=== PATIENT | female | born 2005 | race Caucasian/White ===

== ENCOUNTER 2025-03-17 07:59 | Observation (INO) | payer OTHER, SELFPAY ==
[2025-03-17] VITALS (13 sets, daily range): BP systolic 101–115; BP diastolic 53–68; PULSE 57–107; RESP 14–18; TEMP 36.8–39.4; O2SAT 94–100; BMI 29.7
--- NOTE | 2025-03-17 07:56 | PCM.HP.STD ---
HPI - General General Date of Admission: 03/17/25 Chief Complaint: Acute appendicitis HPI Narrative QUITA CHURCHILL, is a 20 F who presents to [facility] in direct transfer from [facility]. She presents with her parents. She states that she began with symptoms of rather diffuse abdominal discomfort approximately 9 PM yesterday. These symptoms became progressive and more focused to the right lower quadrant so she ultimately presented to outside hospital ER at 2:00 in the morning. She describes some associated nausea and vomiting but otherwise normal bowel function. She also reports fevers with a Tmax of 103 Fahrenheit. Per outside hospital emergency medicine physician patient had CT imaging showing acute uncomplicated appendicitis with multiple appendicoliths. She was reportedly administered Rocephin and Flagyl empirically. Patient has no notable past medical history. She has no history of prior abdominal surgery. [facility] Medical History no medical history Home Medications ?Medication ?Instructions ?Recorded ?Last Taken ?Type Probiotic 1 tab PO DAILY stomach 03/17/25 Unknown History ascorbic acid (vitamin C) 500 mg 500 mg PO DAILY supplement 03/17/25 Unknown History chewable tablet (Acerola C) multivitamin (Daily Multi-Vitamin 1 tab PO DAILY supplement 03/17/25 Unknown History tablet) Allergy/AdvReac Type Severity Reaction Status Date / Time No Known Allergies Allergy Verified 03/17/25 06:48 Surgical History (Updated 03/17/25 @ 07:21 by Bushra Johnson) History of adenoidectomy [place] teeth extracted Social History Smoking Status: Never smoker Vital Signs Vital Signs Vital Signs: 03/17/25 06:46 03/17/25 06:56 Temperature 103 F H Temperature Source Oral Pulse Rate 107 H Respiratory Rate 17 Respiratory Effort Normal Non-Labored Respiratory Depth Normal Respiratory Pattern Normal Blood Pressure 105/68 Blood Pressure Mean 80 Blood Pressure Source Monitor Blood Pressure Position Semi-Fowlers Blood Pressure Location Left Arm Pulse Ox 100 Oxygen Delivery Method Room Air Room Air Weight Weight: 183 lb 13.848 oz Body Mass Index (BMI) 29.7 Physical Exam Const alert and oriented x3 Constitutional Narrative: Mild distress from abdominal discomfort Resp normal respiratory effort GI GI Narrative: Nondistended, soft, markedly tender to palpation over McBurney's point. Negative obturator sign. Assessment & Plan Assessment/Plan (1) Acute appendicitis: PLAN: Patient 20-year-old female who presents with just under 12 hours of signs and symptoms consistent with acute appendicitis. This was confirmed on CT imaging from outside facility but reviewed in our PACS system by me. Patient has a number of appendicoliths and a markedly inflamed?appearing appendix in the right lower quadrant. I discussed need to proceed with surgical appendectomy and discussed the details of a laparoscopic procedure. I shared the increased risk of perforation and complication given the presence of the appendicolith and the need to proceed in an expeditious fashion. Patient and her family are in agreement. Formal consent to be obtained. Patient was already administered empiric antibiotics. Case was posted and we are awaiting an operative time midmorning. Will evaluate postoperatively to determine if patient requires additional inpatient stay. Randell Cruz MD General Surgery Endocrine Surgery Pager: [facility] [address] [place] [address] [place] [address] Office: [phone] Charges/Coding Visit Charges Inpatient E&M: 90623 Init Hosp L2
[2025-03-17] MEDS: 0.9% Normal Saline (1000mL) 1,000 ML 100 ML IV (08:43)
[2025-03-17] MEDS: HYDROmorphone 0.5 MG/0.5 ML SYRINGE IV (08:45)
[2025-03-17] MEDS: Piperacil/Tazobactam 3.375 GM in 0.9% Normal Saline (50mL MB+) 50 ML IV (08:46)
[2025-03-17] MEDS: 0.9% Saline Lock 10 ML Syringe IV (08:50)
--- NOTE | 2025-03-17 09:37 | NURSING ---
pt to surgery
[2025-03-17] MEDS: Lactated Ringers 1,000 ML 15 ML IV (10:14)
--- NOTE | 2025-03-17 10:16 | PRE.ANES_ITS ---
ASA Classification* ASA Classification ASA Classification: 2 and E Assessment & Plan Anesthesia* Anesthesia Assessment Anesthesia Assessment: Discussed sedation and/or anesthesia options, risks, benefits, and alternatives with patient/parents/legal guardian/POA. Questions invited. The patient/parents/legal guardian/POA seems to understand and agrees to proceed with anesthesia plan. Reviewed the physical assessment, medical history, allergy history and patient home medications list prior to surgery/procedure/anesthetic and documented any changes. Performed airway and anesthesia risk assessments. 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 When Was Last Pacemaker Check QUESTION #4 FULL TEXT: You/Your Family Experience fever (hyperthermia) with Anesthesia Last Oral Intake Last Oral intake: Last Oral Intake NPO since 00:00 03/17/25 08:55 Meds taken in AM with sips of No 03/17/25 08:55 water? Meds patient instructed to take am of surgery PONV PONV - marking machine operator: PONV - marking machine operator Female HX of Motion Sickness HX of N/V After Surgery Non-Smoker Duration of Surgery greater than 60 minutes Number of Risk Factors PONV Score Height & Weight Height & Weight: Anesthesia: Height & Weight Height 5 ft 6 in 03/17/25 08:55 Weight: 83.4 kg 03/17/25 08:55 Body Mass Index (BMI) 29.7 03/17/25 08:55 Respiratory Assessment Respiratory Assessment - marking machine operator: Respiratory Tract Infection Hx - marking machine operator Hx Respiratory Tract Infection No 03/17/25 08:55 STOP Sleep Apnea STOP Sleep Apnea - marking machine operator: STOP Sleep Apnea - marking machine operator Hx Hypertension No 03/17/25 06:53 Hx Sleep Apnea No 03/17/25 06:53 CPAP BIPAP Do you snore loudly (louder No 03/17/25 06:53 than talking or can be heard Do you often feel tired/ No 03/17/25 06:53 fatigued/ sleepy during daytime? Has anyone observed you stop No 03/17/25 06:53 breathing during sleep? STOP Results Negative 03/17/25 06:53 QUESTION #5 FULL TEXT : Do you snore loudly (louder than talking or can be heard through closed doors)? Tobacco Use History Tobacco Use History - marking machine operator: Tobacco Use History - marking machine operator Tobacco Use Smoking Status Never smoker 03/17/25 06:53 Hx Tobacco Use No 03/17/25 06:53 Years Smoking Packs Smoked per Day Smoking Cessation Date was within the last 15 years Hx Smoking Cessation Date Hx Smoking Cessation Counseling Hematologic Medial History Hematologic Hx - marking machine operator: Hematologic Medical Hx - food sampler Hx of Blood Transfusion No 03/17/25 06:53 Hx of Transfusion in last 3 No 03/17/25 06:53 Months Date of Last Transfusion (if within last 3 months) Ever experience any problems No 03/17/25 06:53 with transfusion(s)? Specify any problems Hx of Preganancy in last 3 No 03/17/25 06:53 Months Nurse Filling Out Transfusion DREDICK 03/17/25 06:53 & Questions: Date: 03/17/25 03/17/25 06:53 Time: 06:53 03/17/25 06:53 Patient unable to answer at this time (ie. confused, unrespo /Reproduction History /Reproductive History - marking machine operator: /Reproductive Hx- marking machine operator Hx Now No 03/17/25 08:55 Gestational Age (in weeks): EDC: Hx Hx Para Hx Section SAB No 03/17/25 08:55 Active Medications Active Medications: Current Medications Generic Name Dose Route Start Last Admin Trade Name Freq PRN Reason Stop Dose Admin Acetaminophen 650 mg 03/17/25 08:04 Acetaminophen 325 Mg Tablet PO Q6H PRN PRN Pain 1-10 Or Fever >100.7 Docusate Sodium 100 mg 03/17/25 08:04 Docusate Sodium 100 Mg Capsule PO BID PRN PRN Constipation Hydromorphone HCl 0.5 - 1 mg 03/17/25 08:04 Hydromorphone 1 Mg/Ml Syringe IV Q3H PRN PRN Pain Score 6-10 Hydromorphone HCl 0.5 - 1 mg 03/17/25 08:10 03/17/25 08:45 Hydromorphone 0.5 Mg/0.5 Ml Syringe IV 0.5 mg Q3H PRN PRN Administration Pain Score 6-10 Sodium Chloride 250 mls @ 15 mls/hr 03/17/25 06:48 IV .[id number] PRN Saline Flush Sodium Chloride 250 mls @ 15 mls/hr 03/17/25 06:48 IV .[id number] PRN Additional IVPB Infusion Sodium Chloride 1,000 mls @ 100 mls/hr 03/17/25 08:00 03/17/25 09:36 IV 0 mls/hr .Q10H [place] Infusion Lactated Ringer's 1,000 mls @ 15 mls/hr 03/17/25 10:15 03/17/25 10:14 IV 15 mls/hr .Q48H [place] Administration Ondansetron HCl 4 mg 03/17/25 07:58 03/17/25 08:45 Ondansetron 4 Mg/2 Ml Vial IV 4 mg Q8H PRN PRN Administration NAUSEA/VOMITING Oxycodone HCl 5 mg 03/17/25 08:04 Oxycodone 5 Mg Tablet PO Q4H PRN PRN Pain Score 4-10 Sodium Chloride 10 - 40 ml 03/17/25 06:48 03/17/25 08:50 0.9% Saline Lock 10 Ml Syringe IV 10 ml UD PRN Administration SALINE FLUSH PFSH Medical History no medical history Home Medications ?Medication ?Instructions ?Recorded ?Last Taken ?Type Probiotic 1 tab PO DAILY stomach 03/17 Unknown History ascorbic acid (vitamin C) 500 mg 500 mg PO DAILY suppl ement 03/17/25 Unknown History chewable tablet (Acerola C) multivitamin (Daily Multi-Vitamin 1 tab PO DAILY suppl ement 03/17/25 Unknown History tablet) Allergy/AdvReac Type Severity Reaction Status Date / Time No Known Allergies Allergy Verified 03/17/25 10:09 Surgical History History of adenoidectomy [place] teeth extracted Social History Smoking Status: Never smoker Review of Systems (Anesthesia) ROS Narrative System reviewed and no additional complaints, except as documented.
--- NOTE | 2025-03-17 10:30 | APP_PTH ---
PATIENT: QUITA CHURCHILL LOC: MS3 U#:[id number] AGE/SX: 20/F ROOM: MS319 RE03/17/[address]: Dr. Randell Cruz MD : 2005 BED: 1 DIS: 03/17/2025 SPEC #: [id number] RECD: 03/17/25 14:26 STATUS: MONY REJorge #: [id number] JUNIOR: 03/17/25 10:[address]: Randell Cruz DEPT: SURGICAL PATHOLOGY RECD BY: Aiden Cruz ENTERED: 03/17/25 14:58 SP TYPE: APPENDIX OTHR DR: JESSY VAUGHAN Tissues: A - Appendix, NOS Procedures: Surgery Specimen Level III HEADER OPERATION: Laparoscopic appendectomy PRE-OP DIAGNOSIS: Acute appendicitis TISSUE SUBMITTED: A- Appendix MICROSCOPIC DIAGNOSIS A. Appendix, laparoscopic appendectomy: * Acute appendicitis with transmural inflammation and periappendicitis MICROSCOPIC DESCRIPTION Slides are reviewed. GROSS DESCRIPTION A. Received in formalin labeled with the patient's name and date of . Designated as appendix is a 9.0 x 1.4 cm pink-sparks to red appendix with patchy serosal adhesions and fibrinous exudate. The margin is inked black and shaved. Sectioning reveals hemorrhagic and semisolid fecal material within the lumen to include 3 possible fecaliths; the mucosa is pink to dark red-brown and granular. [employer] sections are submitted in 2 cassettes. DE 03/17/2025 CPT:78980
[2025-03-17] MEDS: Midazolam 2 MG/2 ML Syringe IV (10:59)
[2025-03-17] MEDS: Lactated Ringers 1,000 ML 1000 ML IV (10:59)
[2025-03-17] MEDS: Lidocaine 1% (5 ml sdv) 5 ML Vial IV (11:06)
[2025-03-17] MEDS: Cefazolin 1 GM/5 ML Vial 2 GM IV (11:10)
[2025-03-17] MEDS: fentaNYL 100 MCG/2 ML Ampul IV (11:19)
[2025-03-17] MEDS: Bupiv/Epi 0.25% 30 ML Vial (12:13)
[2025-03-17] MEDS: dexMEDEtomidine 200 MCG/2 ML ML 40 MCG IV (12:13)
--- NOTE | 2025-03-17 12:23 | OP.PCM_ITS ---
Operative Report (Standard) Operative Information Date of Procedure: 03/17/25 Pre-Operative Diagnosis: Acute appendicitis Post-Operative Diagnosis: Acute uncomplicated appendicitis Surgery/Procedure Performed: Laparoscopic appendectomy office machines sales representative: No Type of Anesthesia: General/Supplemental RN Documented Start/Stop Times: Operation Date: 03/17/25 10:30 Case Time Into Pre-Op 03/17/25 10:03 Out of Pre-Op 03/17/25 10:54 Anesthesia Start 03/17/25 10:59 Into Room 03/17/25 10:59 Procedure Start 03/17/25 11:21 Procedure End 03/17/25 12:22 Anesthesia End 03/17/25 12:31 Out of Room 03/17/25 12:31 Into Recovery 03/17/25 12:34 Out of Recovery 03/17/25 13:14 Procedure Start Time: 11:21 Procedure Stop Time: 12:22 Select all DRAINS/GRAFTS/IMPLANTS that apply: None Estimated Blood Loss: 5 Specimen collected: Yes Description of specimen(s) removed: Appendix Description of surgery: After appropriate identification in the preoperative holding area, the patient was brought to the operating room and placed supine on the operating room table. Antibiotics had been preoperatively administered. Patient was then induced with general endotracheal anesthetic. The abdomen was prepped and draped in usual sterile fashion. Formal timeout was conducted to confirm both the patient and the procedure. A supraumbilical incision was made and carried down to the level of the fascia which was sharply opened. After opening the peritoneum in like fashion a finger sweep was made to confirm position, and a balloon trocar was placed and pneumoperitoneum was established to 15 mmHg. Patient was positioned in Trendelenburg with the left side down. 2 additional 5 mm trocars were placed in the left lower quadrant and suprapubic positions. The peritoneum was inspected and there were no signs of inadvertent injury from this Cardenas entry. The appendix was visualized with moderately severe inflammation and evidence of inflammatory exudate in the mid body to tip portions. The base appeared relatively preserved of any inflammatory change. There was no evidence of perforation. The appendix appeared curled and well adhered to the lateral surface of the cecum. Using blunt laparoscopic dissection, a window was made in the mesoappendix adjacent to the appendiceal base. The mesoappendix was divided with application of a laparoscopic harmonic. I attempted to place a stapler through this opening, but it was clear from the limited mobility of the appendix that we would end up leaving residual appendix as a stump and therefore I made the decision to dissect the appendix away from the colon. The peritoneal edge was opened medially and laterally using a combination of blunt dissection and the harmonic scalpel. This afforded more mobility with lateral traction on the appendix and I was able to then clearly visualize the mesoappendix proper as well as establish greater working distance to the colon. This tissue was ser ially divided with applications of the harmonic scalpel. Then the base of the appendix was sealed and amputated with the use of an Endo DONAVAN stapler. The appendix was placed in an Endo Catch bag. The staple line was inspected for hemostasis. After hemostasis was confirmed the appendix was removed from the umbilical port site. Pneumoperitoneum was then evacuated and the supraumbilical port site fascia was closed with #1 Vicryl in a [id number] fashion. The port sites were infiltrated with 30 mL local anesthetic. The skin of each port site was closed with 4-0 Monocryl in a subcuticular fashion. Steri-Strips and OpSite dressings were applied. Patient tolerated procedure well without any apparent complications. They were awoken from general anesthetic without issue and transferred to post anesthesia care unit for ongoing recovery. Surgical Findings: ? Acute inflammation of the appendix with associated fibrinous exudate and seros itis ?appendix rather densely adherent to the serosa of the cecum Complications Complications: No
--- NOTE | 2025-03-17 12:37 | PCM.POST.ANE ---
Anesthesia: Postop Eval I Current Vital Signs Temperature: 99.4 F Pulse Rate: 80 Blood Pressure: 115/67 Respiratory Rate: 14 Pulse Ox: 96 Oxygen Delivery Method: Room Air Assessment Airway patent: Yes Spontaneous unlabored respirations: Yes Mental status: Awake and Calm nausea: No Vomiting: No Anesthesia Complication: No Fluid Hydration Crystalloid volume administer (ml): 1,200 Total IV fluid infused: 1,200 Progress Note Anesthesia document: Postop Eval 1 completed: Yes
--- NOTE | 2025-03-17 13:09 | POSTOPAN2_ITS ---
Anesthesia Postop Eval I Sum Postop Eval Completion status Anesthesia document: Postop Eval 1 completed: Yes Anesthesia Postop Eval I Summary Anesthesia Postop Eval I Summary: Anesthesia Postop Eval I: Assessment Summary Airway patent Yes 03/17/25 12:37 VEGETABLE I [email or web address] Spontaneous unlabored Yes 03/17/25 12:37 VEGETABLE I [email or web address] respirations Mental status Awake,Calm 03/17/25 12:37 VEGETABLE I [email or web address] nausea No 03/17/25 12:37 VEGETABLE I [email or web address] Vomiting No 03/17/25 12:37 VEGETABLE I [email or web address] Anesthesia Postop Eval I: Fluid Summary Crystalloid volume administer 1,200 03/17/25 12:37 VEGETABLE I [email or web address] (ml) Colloids volume administered ( ml) Blood Product volume administered (ml) Total IV fluid infused 1,200 03/17/25 12:37 VEGETABLE I [email or web address] Anesthesia Postop Eval I: Summary Notes Anesthesia Complication No 03/17/25 12:37 VEGETABLE I [email or web address] Anesthesia Complication Comment: Post-operative progress note Anesthesia: Postop Eval II Evaluation Mental status: Awake Pain Level: 0 nausea: No Vomiting: No
--- NOTE | 2025-03-17 13:09 | PCM.POSTANE2 ---
Anesthesia Postop Eval I Sum Postop Eval Completion status Anesthesia document: Postop Eval 1 completed: Yes Anesthesia Postop Eval I Summary Anesthesia Postop Eval I Summary: Anesthesia Postop Eval I: Assessment Summary Airway patent Yes 03/17/25 12:37 [email or web address] Spontaneous unlabored Yes 03/17/25 12:37 [email or web address] respirations Mental status Awake,Calm 03/17/25 12:37 [email or web address] nausea No 03/17/25 12:37 [email or web address] Vomiting No 03/17/25 12:37 [email or web address] Anesthesia Postop Eval I: Fluid Summary Crystalloid volume administer 1,200 03/17/25 12:37 [email or web address] (ml) Colloids volume administered ( ml) Blood Product volume administered (ml) Total IV fluid infused 1,200 03/17/25 12:37 [email or web address] Anesthesia Postop Eval I: Summary Notes Anesthesia Complication No 03/17/25 12:37 [email or web address] Anesthesia Complication Comment: Post-operative progress note Anesthesia: Postop Eval II Evaluation Mental status: Awake Pain Level: 0 nausea: No Vomiting: No
--- NOTE | 2025-03-17 18:25 | DCINST_ITS ---
Discharge Instructions DC O2, CPAP, BIPAP needs Home O2 Discharge instructions: No Dressing / Incision Discharge Activity: May Not Drive (No driving while using narcotic pain medication) and May Shower (Postoperative day 2) May shower in (days): 2 Ice area for (Minutes): 20 Lifting Restrictions: No lifting greater than 15 pounds for 2 weeks after surgery Dressing / Incision Call your doctor if your incision/area has: Continuous Slow Oozing, Increased Pain/ Swelling, Increased Redness, Foul Smelling Discharge and Swelling at the incision site Call your doctor if you observe: Fever of 101 or Higher Remove Dressing in: 2 days (Please leave Steri-Strips intact until they fall off spontaneously or are taken off at your follow-up visit) Cleanse incision/area with: Soap & Water Follow Up Care Please Follow Up With: Randell Cruz MD When: 10-14days postop Test Results: Test results from this visit will be discussed in further detail at your follow- up appointment, if applicable. Discharge Plan Admission Admit Date/Time: 03/17/25 07:59 Primary Reason for Your Visit: Acute appendicitis Attending Provider: Randell Cruz Primary Care Provider: SHIRA WATTS Discharge Orders/Prescriptions Prescriptions: No Action ascorbic acid (vitamin C) [Acerola C] 500 mg tablet,chewable 500 mg PO DAILY Probiotic 1 tab PO DAILY multivitamin [Daily Multi-Vitamin] Tablet 1 tab PO DAILY Referrals / Follow Up: SHIRA WATTS CRNP [Primary Care Provider, Family Practice] Disposition Disposition (needs filled in before D/C Order can be placed): Home, Self Care
--- NOTE | 2025-03-17 18:29 | DS.PCM_ITS ---
Providers Date of Admission: 03/17/25 Primary Care Physician: JESSY VAUGHAN Reason For Visit: ACUTE APPENDICITIS Diagnosis Discharge Diagnosis (1) Acute appendicitis: Status: Acute Code(s): K35.80 - Unspecified acute appendicitis Plan: Patient 20-year-old female who presents with just under 12 hours of signs and symptoms consistent with acute appendicitis. This was confirmed on CT imaging from outside facility but reviewed in our PACS system by me. Patient has a number of appendicoliths and a markedly inflamed?appearing appendix in the right lower quadrant. I discussed need to proceed with surgical appendectomy and discussed the details of a laparoscopic procedure. I shared the increased risk of perforation and complication given the presence of the appendicolith and the need to proceed in an expeditious fashion. Patient and her family are in agreement. Formal consent to be obtained. Patient was already administered empiric antibiotics. Case was posted and we are awaiting an operative time midmorning. Will evaluate postoperatively to determine if patient requires additional inpatient stay. Randell Cruz MD General Surgery Endocrine Surgery Pager: [facility] [address] [place] [address] [address] [place] [address] Office: [phone] Medications at Discharge Home Medications Probiotic 1 tab PO DAILY stomach 03/17/25 ascorbic acid (vitamin C) 500 mg chewable tablet (Acerola C) 500 mg PO DAILY supplement 03/17/25 multivitamin (Daily Multi-Vitamin tablet) 1 tab PO DAILY supplement 03/17/25 oxycodone 5 mg tablet 5 mg PO Q6H PRN pain 5 days #10 tabs 03/17/25 Hospital Course Operations appendectomy Summary of Care Provided Hospital Course: Patient 20-year-old female who is admitted via direct transfer from [facility] early in the morning on 03/17/2025. Upon her arrival she confirmed a classic history for acute appendicitis and her physical exam matched. With this diagnosis and the presence of appendicolith I recommended surgical appendectomy at first or availability. Procedure was described in detail and both patient and her parents provided their consent. After reviewing outside records she was begun on empiric Zosyn and maintained n.p.o. until the time of the OR. Intraoperatively we were able to confirm acute uncomplicated appendicitis and the procedure proceeded uneventfully. Postoperatively patient was returned to the hospital lui where she was begun on a clear liquid diet. She tolerated this well and her pain was much improved as demonstrated by multiple occasions ambulated in the hallways. Discharge to home was requested and granted based on these clinically reassuring signs. However, it was done so only after establishing expectation for outpatient follow-up and verbally confirming post procedure activity/wound care instructions. Physical Exam Const alert, oriented x3 and no apparent distress Resp normal respiratory effort GI GI Narrative: Nondistended, operative sites covered with operative dressings. The supraumbilical dressing saturated moderately with blood but no active drainage. Abdomen soft and appropriately tender to palpation. Weight / BMI Weight Weight: 183 lb 13.848 oz Body Mass Index (BMI) 29.7 D/C Instructions May shower in (days): 2 Ice area for (Minutes): 20 Call your doctor if your incision/area has: Continuous Slow Oozing, Increased Pain/ Swelling, Increased Redness, Foul Smelling Discharge and Swelling at the incision site Call your doctor if you observe: Fever of 101 or Higher Cleanse incision/area with: Soap & Water DC O2, CPAP, BIPAP Needs Home O2 Discharge instructions: No Please Follow Up With: Randell Cruz MD When: 10-14days postop Meaningful Use Info Meaningful Use Meaningful Use Diagnoses (Choose all that apply): None applicable Discharge Plan Admission Admit Date/Time: 03/17/25 07:59 Primary Reason for Your Visit: Acute appendicitis Attending Provider: Randell Cruz Primary Care Provider: SHIRA WATTS Instructions Forms: Work / School Excuse Discharge Orders/Prescriptions Prescriptions: New oxycodone 5 mg tablet 5 mg PO Q6H PRN (Reason: pain) 5 Days Qty: 10 0RF Continued multivitamin [Daily Multi-Vitamin] Tablet 1 tab PO DAILY No Action ascorbic acid (vitamin C) [Acerola C] 500 mg tablet,chewable 500 mg PO DAILY Probiotic 1 tab PO DAILY Referrals / Follow Up: SHIRA WATTS CRNP [Primary Care Provider, Family Practice] Disposition Disposition (needs filled in before D/C Order can be placed): Home, Self Care Charges/Coding Visit Charges Inpatient E&M: 49881 Disch Hosp
== END 2025-03-17 18:57 | disposition home or self-care (01) ==
PROVIDERS: Admitting Provider Surgery; PCP Nurse Practitioner Adult Health; Visit Provider Surgery
PROC: 0DTJ4ZZ Resection of Appendix, Percutaneous Endoscopic Approach (ICD-10-PCS; CPT 44970; principal; 2025-03-17 10:10)
DX: K35.80 Unspecified acute appendicitis (principal)
CPT/HCPCS: 44970; 88304; 94668; 96361; 96365; 96375; 99221; A4216; G0378; G0379; J2405